=== PATIENT | female | born 1965 | race Caucasian/White ===

== ENCOUNTER 2018-07-29 09:45 | Emergency (ER) | payer OTHER ==
[~2018-07-29] VITALS: Ht 165.1 cm; Wt 90.7 kg
[2018-07-29] MEDS ORDERED: KETOROLAC TROMETH 30 MG/ML 1ML VIAL IV ONE (10:30)
[2018-07-29] MEDS ORDERED: SODIUM CHLORIDE 0.9% 1,000 ML IV ONE (10:30)
[2018-07-29 13:10] LABS: Urine Bacteria NONE SEEN /hpf (None Seen); Urine Blood Negative /uL (Negative); Urine Mucus FEW (None Seen); Urine Specific Gravity 1.029 (1.001-1.035); Urine WBC 68 /hpf (0 - 5)
[2018-07-29 14:00] VITALS: BP 142/72
== END 2018-07-29 14:10 | disposition home or self-care (01) ==
LOC: ER 09:55
DX: N39.0 Urinary tract infection, site not specified (principal); E11.9 Type 2 diabetes mellitus without complications
CPT/HCPCS: 74176; 81001; 82962; 93005; 96374; 99284; J1885

== ENCOUNTER 2022-10-26 05:11 | Emergency (ER) | payer OTHER ==
[~2022-10-26] VITALS: Ht 165.1 cm; Wt 81.9 kg
[2022-10-26] MEDS ORDERED: HYDROcodone-ACET 10/325MG TAB PO ONE (07:00)
[2022-10-26] MEDS ORDERED: LIDOCAINE 1% (LOCAL ANESTH.) PF 5ml SDV ID ONE (07:00)
[2022-10-26 07:16] LABS: Basophils # (auto) 0.1 10 ^3/uL (0-0.2); Eosinophils # (auto) 0.2 10 ^3/uL (0-0.8); Eosinophils % (auto) 2.3 % (0.0-7.0); Hematocrit 40.5 % (36.0-46.0); Hemoglobin 13.3 g/dL (12.2-16.2); Lymphocytes # (auto) 2.9 10 ^3/uL (0.4-5.4); Lymphocytes % (auto) 33.9 % (10.0-50.0); Mean Corpuscular Hemoglobin 30.3 pg (28.0-32.0); Mean Corpuscular Hgb Conc. 32.7 g/dL (32.0-36.0); Mean Corpuscular Volume 92.7 fL (80.0-100.0); Monocytes # (auto) 0.6 10 ^3/uL (0-1.3); Monocytes % (auto) 7.1 % (0.0-12.0); Neutrophils # (auto) 4.8 10 ^3/uL (1.6-8.6); Neutrophils % (auto) 55.7 % (37.0-80.0); Red Blood Cells 4.37 10^6/uL (4.0-5.20); Red Cell Distribution Width 13.8 % (11.8-14.3); White Blood Cell 8.6 10^3/uL (4.4-10.8)
[2022-10-26 07:29] VITALS: BP 185/70
[2022-10-26 07:30] VITALS: PULSE 65; RESP 16; O2SAT 97
[2022-10-26 07:38] LABS: Alanine Aminotransferase 31 U/L (7-40); Albumin 4.3 g/dL (3.2-4.8); Alkaline Phosphatase 116 U/L (46-116); Anion Gap 5.4 (5-15); Aspartate Aminotransferase 24 U/L (13-40); BUN/Creatinine Ratio 24.7 (10.0-20.0); Bilirubin, Total 0.3 mg/dL (0.2-1.0); Blood Urea Nitrogen 19 mg/dL (9-23); Calcium 9.5 mg/dL (8.5-10.1); Carbon Dioxide 28.6 mmol/L (20-30); Chloride 106 mmol/L (98-107); Glucose 118 mg/dL (74-106); Potassium 4.2 mmol/L (3.5-5.1); Sodium 140 mmol/L (136-145); Total Protein 6.8 g/dL (5.7-8.2)
[2022-10-26 07:53] VITALS: PULSE 73; RESP 16; O2SAT 95
[2022-10-26] MEDS ORDERED: CLINDAMYCIN 600MG IV 50 ML IV ONE (08:30)
[2022-10-26 08:40] LABS: Erythrocyte Sedimentation Rate 18 mm/hr (0-20)
[2022-10-26] MEDS ORDERED: CLIN300C70 PO (10:43)
[2022-10-26] MEDS ORDERED: HYDR-4902 PO (10:43)
== END 2022-10-26 10:44 | disposition home or self-care (01) ==
LOC: ER 05:11
DX: S91.134A Puncture wound without foreign body of right lesser toe(s) without damage to nail, initial encounter (principal); L03.031 Cellulitis of right toe; E11.9 Type 2 diabetes mellitus without complications; Z98.890 Other specified postprocedural states; Y93.01 Activity, walking, marching and hiking; Y92.89 Other specified places as the place of occurrence of the external cause
CPT/HCPCS: 36415; 73700; 80053; 82962; 85025; 85652; 96365; 99285; J3490

== ENCOUNTER 2023-01-22 04:34 | Emergency (ER) | payer OTHER ==
[~2023-01-22] VITALS: Ht 165.1 cm; Wt 85.7 kg
[~2023-01-22 04:34] MED LIST: CLIN300C70 PO; HYDR-4902 PO
[2023-01-22] MEDS ORDERED: GABA-1308 PO (04:54)
[2023-01-22] MEDS ORDERED: HYDR-4902 PO (04:54)
[2023-01-22] MEDS ORDERED: HYDROcodone-ACET 5/325MG TAB PO ONE (05:00)
[2023-01-22 06:01] VITALS: BP 145/61; PULSE 66; RESP 16; O2SAT 98
== END 2023-01-22 06:00 | disposition home or self-care (01) ==
LOC: ER 04:34
DX: M79.643 Pain in unspecified hand (principal); G62.9 Polyneuropathy, unspecified; E11.9 Type 2 diabetes mellitus without complications
CPT/HCPCS: 82962